=== PATIENT | female | born 1960 | race Caucasian/White ===

== ENCOUNTER 2019-07-26 19:31 | Emergency (ER) | payer BC, MEDICAID ==
[~2019-07-26] VITALS: Ht 172.7 cm; Wt 80.7 kg
[2019-07-26 19:42] VITALS: BP 159/98
== END 2019-07-26 19:56 ==
LOC: ER 19:31
DX: S00.81XA Abrasion of other part of head, initial encounter (principal); F10.129 Alcohol abuse with intoxication, unspecified; F17.210 Nicotine dependence, cigarettes, uncomplicated; Z90.710 Acquired absence of both cervix and uterus; Z88.2 Allergy status to sulfonamides; V43.52XA Car driver injured in collision with other type car in traffic accident, initial encounter; Y93.89 Activity, other specified; Y92.488 Other paved roadways as the place of occurrence of the external cause; Y99.8 Other external cause status; Y90.9 Presence of alcohol in blood, level not specified